=== PATIENT | male | born 1930 | race Caucasian/White ===

== ENCOUNTER 2017-01-21 07:17 | Day surgery (SDC) | payer MEDICARE, BC ==
[~2017-01-21] VITALS: Ht 177.8 cm; Wt 90.7 kg
[~2017-01-21 07:17] MED LIST: ALLOPURINOL300 MG PO; CARVEDILOL3.125 MG PO; CLEAR FIBER PO; ECONAZOLE1 % EX; FAMOTIDINE40 M1 PO; FISH OIL1000 MG PO; FLUNISOLIDE; FUROSEMIDE20 MG PO; GABAPENTIN100 MG PO; GLIMEPIRIDE2 MG PO; IPRATROPIUM/ALBUTERO IN; ISOSORB MONO30 MG PO; LEVOTHYROXIN50 MC1 PO; LORATADINE10 M1 PO; LORAZEPAM0.5 MG PO; METFORMIN500 MG PO; MIRALAX3350 NF PO; NOVOLOG MIX SC; PANTOPRAZOLE SO40 MG PO; PLAVIX75 MG PO; QVAR80 MCG IN; SIMVASTATIN40 MG PO; VITAMIN D31000 UNI1 PO; ZESTRIL/PRINIV2.5 MG PO; [UNRECOGNIZED DRUG - OTHER] PO; [UNRECOGNIZED DRUG - OTHER] PO; [UNRECOGNIZED DRUG - OTHER] PO
[2017-01-21 09:29] VITALS: BP 116/64
== END 2017-01-21 09:55 | disposition home or self-care (01) ==
LOC: ENDO 07:17 → ORM 16:55 → ENDO 16:55 → ORM 17:30
PROVIDERS: ATTEND Internal Medicine Gastroenterology
PROC: 0DB48ZX Excision of Esophagogastric Junction, Via Natural or Artificial Opening Endoscopic, Diagnostic (ICD-10-PCS; principal; 2017-01-21)
PROC: 0D758ZZ Dilation of Esophagus, Via Natural or Artificial Opening Endoscopic (ICD-10-PCS; 2017-01-21)
DX: R13.10 Dysphagia, unspecified (principal); K22.2 Esophageal obstruction; K44.9 Diaphragmatic hernia without obstruction or gangrene; K21.9 Gastro-esophageal reflux disease without esophagitis; I10 Essential (primary) hypertension; E11.9 Type 2 diabetes mellitus without complications; I25.10 Atherosclerotic heart disease of native coronary artery without angina pectoris; E03.9 Hypothyroidism, unspecified; M10.9 Gout, unspecified; G20 Parkinson's disease; E78.00 Pure hypercholesterolemia, unspecified; Q40.8 Other specified congenital malformations of upper alimentary tract; K29.50 Unspecified chronic gastritis without bleeding; C95.90 Leukemia, unspecified not having achieved remission; Z95.1 Presence of aortocoronary bypass graft